=== PATIENT | female | born 1975 | race Caucasian/White ===

== ENCOUNTER → 2019-11-22 | Outpatient (CLI) | payer BC ==
--- NOTE | 2019-11-23 16:57 | RAD ---
EXAM: BILATERAL DIGITAL 3D SCREENING MAMMOGRAPHY. HISTORY: Routine mammographic screening. TECHNIQUE: Bilateral digital 3D and tomographic images were obtained in CC and MLO projections. Computer-aided detection was applied. COMPARISON: None available. This is interpreted as a baseline study. COMPOSITION: C. The breasts are heterogeneously dense, which may obscure small masses. FINDINGS: Circumscribed and obscured nodules laterally on the right measure up to 1.6 x 0.8 cm. There is a another small nodule inferomedially on the left. Ill-defined nodular densities are noted in the left subareolar regions. There is an asymmetric parenchymal island superolaterally on the left. BI-RADS CATEGORY 0: Incomplete--Needs Additional Imaging Evaluation. RECOMMENDATION: 1. Sonography of the right lateral breast to assess obscured nodules at baseline. 2. Sonography of an asymmetric parenchymal island superolaterally on the left. 3. Sonography of the small nodule inferomedially on the left in the left subareolar region. Electronically signed by: Gretchen Irving MD (11/23/2019 4:53 PM) [id number]
== END | disposition home or self-care (01) ==
LOC: MAMMO 15:20
PROVIDERS: ATTEND Family Medicine
DX: Z12.31 Encounter for screening mammogram for malignant neoplasm of breast (principal); N64.89 Other specified disorders of breast
CPT/HCPCS: 77063; 77067

== ENCOUNTER → 2019-11-28 | Outpatient (CLI) | payer BC ==
--- NOTE | 2019-11-29 14:53 | RAD ---
Examination: Bilateral breast ultrasound. INDICATION: Baseline screening recall for bilateral breast findings of an asymmetry in the superolateral left breast and, subareolar left breast nodule, and lateral right breast mass. COMPARISON: Bilateral mammogram of 11/22/2019. TECHNIQUE: Grayscale and color Doppler imaging of the areas of mammographic concern was performed of both the right and left breasts. FINDINGS: Right breast: An oval parallel orientation circumscribed lobulated 11 mm mass is identified at the right 8:00 position 5 cm from the nipple and corresponds with the mammographic mass recalled from screening. There is no posterior acoustic enhancement or shadowing. This is a probably benign fibroadenoma. Given lack of prior documented stability, follow-up ultrasound in 6 months recommended. Sonographic survey right axilla revealed no adenopathy. Left breast: Sonographic evaluation of the left nipple areolar complex in the area of inferomedial nodularity reveals no discrete mass or suspicious sonographic abnormality. There does appear to be nipple inversion. No skin thickening. Sonographic assessment of the medial left breast identifies an oval island of dense fibroglandular tissue with edge artifact at the 9:00 position 5 cm from the nipple.This is probably benign dense fibroglandular breast tissue. Sonographic survey of the left axilla revealed no adenopathy. IMPRESSION: Probably benign findings in both breasts. Recommend six-month follow-up targeted bilateral breast ultrasound BI-RADS Category 3 Probably benign findings
== END ==
LOC: US 12:48
PROVIDERS: ATTEND Family Medicine
DX: R92.2 Inconclusive mammogram (principal)
CPT/HCPCS: 76641